=== PATIENT | female | born 1975 | race Caucasian/White ===

== ENCOUNTER 2022-11-06 00:44 | Day surgery (SDC) | payer OTHER, SELFPAY ==
[2022-10-26 08:31] VITALS: BMI 31.6
--- NOTE | 2022-10-26 08:35 | PC.NURSE ---
Report to the Outpatient Waiting Room, entrance under the green pavilion located off [facility], at time 0600 on date 11/06/22. Planned Procedure Time: 0730. Time changes happen often and if your time is changed the preop area will call you the afternoon before. - You and your visitor will be asked to self-screen and do not enter if you have any COVID symptoms. - A mask is optional within the hospital at this time. Patients may have clear liquids (water, carbonated beverages, clear teas, apple juice) until 3 hours prior to surgery with a maximum of 20 ounces. - No food from midnight until time of surgery Take the following medications with a SIP of water the morning of surgery: WELLBUTRIN DO NOT STOP ANY OF YOUR OTHER PRESCRIPTION MEDICATIONS PRIOR TO SURGERY ?EXCEPT THE FOLLOWING Medications to discontinue per physician: N/A Date to take last dose: N/A Please no make-up, nail rwandan, hairspray, perfume, deodorant, or body powder the day of surgery. No jewelry (including any body piercings) or valuables the day of surgery, leave them at home. Please take a shower or bath the night before, or the morning of, surgery with an antibacterial soap. Wear comfortable, loose fitting clothing. - Jewelry must be removed prior to entering the operating room. Rings and piercings that are not removed may be cut off. - The hospital will not accept responsibility for valuables. - Please leave all valuables, including medications, at home the day of surgery. If you are going home after surgery, a licensed sprinkling truck driver must drive you home. - NO public transportation without another adult if you receive anesthesia. - We recommend that an adult stay with you for 24 hours following discharge. - We also recommend that you do not drive, make important decision, drink alcoholic beverages, or take any drugs that were not prescribed by your health care provider for at least 24 hours after your discharge time. Follow any additional instructions given to you from your surgeon. If you or anyone in your household have experienced Covid symptoms in the past week, please notify your surgeon or the nurse liaison at the phone number below for possible testing. Telephone instructions given to PT - COLTEN NUNEZ and asked if any additional questions and then verbalized understanding. Patient advised to call surgeon office or pre surgery nurse liaison [phone] if any additional questions.
--- NOTE | 2022-11-06 07:48 | P.PNAN_ITS ---
Anes - Initial Pre Proc Eval Procedure: Operation Date: 11/06/22 10:00 Proposed Procedures p Hysteroscopy with Gloria Endometrial Ablation - Giovanni Starr MD Date/Time: 11/06/22 07:48 Surgeon: Giovanni Starr MD Pre Op Diagnosis: menorrhagia Patient Data Age: 47 Gender: F Height: 1.65 m Weight: 86.2 kg Allergies Allergy/AdvReac Type Severity Reaction Status Date / Time No Known Allergies Allergy Verified 11/06/22 08:37 Home Medications Medication Instructions Recorded Confirmed Type atorvastatin 10 mg tablet 10 mg PO HS 10/26/22 11/06/22 History bupropion HCl 300 mg 24 hr tablet, 300 mg PO DAILY 10/26/22 11/06/22 History extended release losartan 100 mg tablet 100 mg PO HS 10/26/22 11/06/22 History Patient hx anesthesia problems: none Family hx anesthesia problems: none Results Review: All pre-operative results and documents have been reviewed as part of the pre- operative evaluation. [facility] Past Medical History Medical History (Updated 11/06/22 @ 07:49 by Kehinde Farmer DO) Anxiety Depression Hyperlipidemia Hypertension Surgical History Surgical History (Updated 11/06/22 @ 07:49 by Kehinde Farmer DO) History of reduction mammoplasty Social History Social History Smoking status: Never smoker Alcohol intake: current Drinks per week: 3 Substance use: never Substance use type: does not use Living arrangements: with family Spiritual care concerns: No Anes - Eval Final PreProcedure Day of Procedure 11/06/22 07:48 Patient weight: obese Heart: regular rate and rhythm Lungs: clear to auscultation Airway: Mallampati scale class II Neurological: alert and oriented Last oral intake: >/= 8 hours ASA classification: III Emergent: no Anesthetic plan: proceed Anesthesia type and monitoring: general GIVS and standard monitoring Results Review: All pre-operative results and documents have been reviewed as part of the pre- operative evaluation. Informed Consent: The patient's anesthetic plan and its attendant risks and benefits were discussed with the patient/family/POA. Questions were solicited and answers provided to the satisfaction of the patient/family/POA.
[2022-11-06] MEDS: LACTATED RINGERS 1,000 ML 30 ML IV CONT (08:25)
[2022-11-06 08:39] VITALS: BP 116/67; PULSE 69; RESP 18; TEMP 36.9; O2SAT 100
[2022-11-06] MEDS: ACETAMINOPHEN 500 MG TABLET 1000 MG PO (08:42)
--- NOTE | 2022-11-06 09:14 | WPDHPUPDATE1 ---
History and Physical Update Update Date/Time: 11/06/22 09:14 History and Physical has been reviewed, including an updated exam of the patient. There are NO changes in the patient's condition. Risks, benefits, and alternatives have been discussed and questions answered. Patient agrees to proceed with procedure.
--- NOTE | 2022-11-06 09:24 | W.PM.PROC2 ---
Procedure Note - Detailed Date of Procedure 11/06/22 Pre-op Diagnosis menorrhagia Post-op Diagnosis Same Procedure Performed Total laparoscopic hysterectomy. Surgeon Giovanni Starr MD Anesthesia General Indications Menorrhagia Findings absent fallopian tubes, normal-appearing uterus and ovaries. Description of Procedure This patient was taken to the operating room. She was prepped and draped in the dorsal lithotomy position after induction of general anesthesia. The uterine manipulator and Daniel cup were placed. This was done with a speculum and tenaculum. The speculum was placed. The cervix was grasped with a tenaculum. The stay sutures were placed at 3 and 9:00 a.m.. The stay sutures of 0 Vicryl were brought through the appropriately sized Daniel cup. The tip of the JOHN manipulator was placed in the intrauterine cavity. The cup was slid into place around the cervix and into the fornices. It was locked into place. The sutures were then wrapped around the handle and tied under tension. A 5 mm skin incision was made in the left upper quadrant the abdomen. A 5 mm trocar was inserted into the intrauterine cavity under direct visualization of the scope. Pneumoperitoneum was achieved. A left lower quadrant 11 mm incision was made with scalpel. An 11 mm trocar was inserted into the anterior abdominal cavity under direct visualization the scope. A 5 mm infraumbilical incision was made with a scalpel and a 5 mm trocar was inserted the intra-abdominal cavity under direct visualization of the scope. Bilateral ureteral lysis was performed. This was done from the pelvic brim down to the uterine artery. This was done with careful dissection using sharp and blunt dissection. In a stepwise fashion along the lateral aspects of the uterus theSuspensory ligament of the ovary, round ligament and broad ligaments were cauterized transected down to the level of the uterine arteries. A bladder flap was created in the bladder was moved distally to the end of the cervix and over the Daniel cup. The bilateral uterine arteries were cauterized and transected. Colpotomy was then performed. In a circumferential fashion the vagina was transected using unipolar cautery. The incision was made down on the Daniel cup. The uterus and cervix were taken out through the vagina. A pneumo occluder was placed in the vagina. The vaginal cuff was closed with a 0 V lock suture in a running fashion. The pelvis was irrigated with copious amounts antibiotic irrigation. The ureters were again examined and found to be intact and flowing freely under the uterine arteries into the bladder. The bladder was intact. It was examined directly. The vagina was irrigated with Betadine solution after removal of the Pneumo occluder. The patient was taken to recovery room. She was stable condition. Sponge lap and needle counts were correct x2. Drains Yes Packing No Pathology Yes Complications No immediate complications Condition Stable Disposition Floor
[2022-11-06] MEDS: LIDOCAINE HCL 1% LOCAL INJ 20 ML VIAL 10 ML INFILTRATE (09:56)
[2022-11-06 10:11] VITALS: BP 102/61; PULSE 66; RESP 20; O2SAT 98
[2022-11-06 10:35] VITALS: BP 106/59; PULSE 53; RESP 20
[2022-11-06 11:05] VITALS: BP 115/60; PULSE 50; RESP 20
[2022-11-06] MEDS: KETOROLAC 15 MG/ML VIAL (*BKC) IV PUSH (11:07)
[2022-11-06] MEDS: oxyCODONE HCL (*CRX) 5 MG TAB IR PO (11:34)
[2022-11-06 11:35] VITALS: BP 114/48; PULSE 51; RESP 18
--- NOTE | 2022-11-12 13:25 | W.PM.PROC2 ---
Procedure Note - Detailed Date of Procedure 11/12/22 Pre-op Diagnosis menorrhagia Post-op Diagnosis Same Procedure Performed endometrial ablation with hysteroscopy d&c Surgeon Giovanni Starr MD Anesthesia MAC Indications Severe menorrhagia Findings Normal vulva vagina and cervix. Normal endometrium. Description of Procedure The patient was taken to the operating room. She was prepped and draped in the dorsal lithotomy position after induction of mac anesthesia. A speculum was placed in the vagina. Cervix grasped with a tenaculum. The cervix was dilated to about 1 cm. The hysteroscope was inserted. The above findings were noted. Endometrial curettage was performed with a medium-size curette. All surfaces of the endometrium were affected by the curettage. The specimens were collected and sent to pathology. Measurements were taken of the uterus and cervix. The uterine length was then entered into the hand piece of the Gloria device. The device was inserted into the intrauterine cavity. The array of the device was expanded. The balloon cuff was inflated. A good seal was achieved. The energy and safety cycles were initiated and completed. The array was collapsed and the instrument was withdrawn after deflating the balloon cuff. Hysteroscope was reinserted. Above findings were noted. The hysteroscope was removed. The patient tolerated the procedure well. The speculum and tenaculum were removed. She was taken to recovery in stable condition. Sponge lap and needle counts were correct x2. Estimated Blood Loss 15 Pathology Yes Complications No immediate complications Condition Stable Disposition Same day
== END 2022-11-06 11:50 | disposition home or self-care (01) ==
PROVIDERS: PCP Family Medicine Sports Medicine; Visit Provider Obstetrics & Gynecology
PROC: 0U5B8ZZ Destruction of Endometrium, Via Natural or Artificial Opening Endoscopic (ICD-10-PCS; CPT 58563; principal; 2022-11-06 10:00)
DX: N92.0 Excessive and frequent menstruation with regular cycle (principal); I10 Essential (primary) hypertension; E78.5 Hyperlipidemia, unspecified; F41.9 Anxiety disorder, unspecified; F32.A Depression, unspecified; E66.9 Obesity, unspecified; Z68.32 Body mass index [BMI] 32.0-32.9, adult
CPT/HCPCS: 58563; 88305; A9270; J1100; J1885; J2250; J2405; J2704; J3010; J7120